=== PATIENT | female | born 1960 ===

== ENCOUNTER 2018-12-09 03:35 | Inpatient (IN) ==
[2018-12-09] MEDS ORDERED: ONDANSETRON 4 MG/2 ML VIAL IV PRN (04:45)
[2018-12-09] MEDS ORDERED: MAGNESIUM HYDROXIDE SUSP 30 ML UDCUP PO PRN (04:45)
[2018-12-09] MEDS ORDERED: DEXTROSE 5% NACL 0.45% 1,000 ML IV SCH (05:00)
[2018-12-09 05:07] LABS: Basophils # 0.1 10*3/uL (0.0-0.2); Basophils % 0.5 % (0.0-0.8); Eosinophils # 0.1 10*3/uL (0.0-0.87); Eosinophils % 0.8 % (0.00-10.9); Hematocrit 43.5 VOL% (35.7-47.0); Hemoglobin 14.8 GM/DL (12.0-16.0); Immature Granulocytes % 0.5 %; Immature Granulocytes Absolute 0.06 #; Lymphocytes # 2.1 10*3/uL (1.4-4.0); Lymphocytes % 19.3 % (21.3-54.2); Mean Corpuscular Hemoglobin 29 PG (27-34); Mean Corpuscular Volume 85.6 FL (87-102); Mean Platelet Volume 10.5 FL (9.6-12.0); Monocytes # 0.6 10*3/uL (0.11-0.8); Monocytes % 5.1 % (1.7-12.7); Neutrophils # 8.2 10*3/uL (1.4-7.4); Neutrophils % 73.8 % (38.7-73.9); Platelet Count 182 T/CUMM (130-400); Red Blood Count 5.08 MC/CUMM (3.8-5.5); Red Cell Distribution Width 12.1 % (9.3-17.3)
[2018-12-09 05:28] LABS: Albumin 3.3 G/DL (3.4-5.0); Bilirubin,Total 0.5 MG/DL (0.2-1.0); Calcium 8.7 MG/DL (8.5-10.1); Osmolality,Calculated 285.8 MOS/KG (273-304); Potassium 3.6 MMOL/L (3.5-5.1); Total Protein 7.7 G/DL (6.4-8.3)
[2018-12-09] MEDS ORDERED: GLUCAGON 1 MG VIAL IM PRN ×2 (12:47→18:49)
[2018-12-09] MEDS ORDERED: DEXTROSE 50% 25 GM/50 ML VIAL IV PRN (12:47)
[2018-12-09] MEDS ORDERED: EPINEPHrine 1 MG/ML VIAL ONE (12:57)
[2018-12-09] MEDS ORDERED: BUPIVACAINE 0.5% 50 ML VIAL ONE (12:57)
[2018-12-09] MEDS ORDERED: DEXAMETHASONE 4 MG/1 ML VIAL ONE ×2 (12:58→16:36)
[2018-12-09] MEDS ORDERED: ceFAZolin 1,000 MG VIAL ONE (14:31)
[2018-12-09] MEDS: SODIUM CHLORIDE 0.45% 1,000 ML IV SCH ×2 (14:33→21:29)
[2018-12-09] MEDS ORDERED: MIDAZOLAM 2 MG/2 ML VIAL ONE (16:36)
[2018-12-09] MEDS ORDERED: fentaNYL 100 MCG/2 ML VIAL ONE (16:36)
[2018-12-09] MEDS ORDERED: PROPOFOL 200 MG/20 ML VIAL IV ONE (16:36)
[2018-12-09] MEDS ORDERED: SEVOFLURANE 1 UNIT/15 MINUTE INH ONE (16:36)
[2018-12-09] MEDS ORDERED: NEOSTIGMINE 10 MG/10 ML VIAL ONE (16:37)
[2018-12-09] MEDS ORDERED: GLYCOPYRROLATE 0.4 MG/2 ML VIAL ONE (16:37)
[2018-12-09] MEDS ORDERED: KETOROLAC 30 MG/1 ML VIAL ONE (16:37)
[2018-12-09] MEDS ORDERED: ONDANSETRON 4 MG/2 ML VIAL ONE (16:37)
[2018-12-09] MEDS ORDERED: LACTATED RINGERS 1,000 ML IV ONE (16:37)
[2018-12-09] MEDS ORDERED: ROCURONIUM 100 MG/10 ML VIAL IV ONE (16:37)
[2018-12-09 18:04] LABS: Basophils % 0.3 % (0.0-0.8); Eosinophils % 0.1 % (0.00-10.9); Hematocrit 40.4 VOL% (35.7-47.0); Hemoglobin 13.5 GM/DL (12.0-16.0); Immature Granulocytes % 0.4 %; Immature Granulocytes Absolute 0.03 #; Lymphocytes # 0.8 10*3/uL (1.4-4.0); Lymphocytes % 10.8 % (21.3-54.2); Mean Corpuscular HGB Conc 33.4 GM/DL (32-36); Mean Corpuscular Hemoglobin 29 PG (27-34); Mean Corpuscular Volume 85.8 FL (87-102); Mean Platelet Volume 10.8 FL (9.6-12.0); Monocytes # 0.1 10*3/uL (0.11-0.8); Monocytes % 1.7 % (1.7-12.7); Neutrophils % 86.7 % (38.7-73.9); Platelet Count 157 T/CUMM (130-400); Red Blood Count 4.71 MC/CUMM (3.8-5.5); Red Cell Distribution Width 12.3 % (9.3-17.3)
[2018-12-09 18:39] LABS: Calcium 8.1 MG/DL (8.5-10.1); Potassium 3.9 MMOL/L (3.5-5.1)
[2018-12-09] MEDS ORDERED: DEXTROSE 50% 25 GM/50 ML SYRINGE IV PRN (18:49)
[2018-12-09] MEDS: metFORMIN 500 MG TABLET PO SCH (18:50)
[2018-12-09] MEDS: INSULIN REGULAR 100 UNIT/ML SUBCUT SCH (18:50)
[2018-12-09] MEDS: MULTIVITAMIN (BEROCCA) TABLET PO SCH (18:55)
[2018-12-10] MEDS: INSULIN REGULAR 100 UNIT/ML SUBCUT SCH ×5 (00:35→21:30)
[2018-12-10 04:33] LABS: Basophils % 0.1 % (0.0-0.8); Hematocrit 37.3 VOL% (35.7-47.0); Hemoglobin 12.5 GM/DL (12.0-16.0); Immature Granulocytes % 0.5 %; Immature Granulocytes Absolute 0.07 #; Lymphocytes % 14.9 % (21.3-54.2); Mean Corpuscular HGB Conc 33.5 GM/DL (32-36); Mean Corpuscular Hemoglobin 29 PG (27-34); Mean Corpuscular Volume 85.6 FL (87-102); Monocytes % 7.3 % (1.7-12.7); Neutrophils # 10.5 10*3/uL (1.4-7.4); Neutrophils % 77.2 % (38.7-73.9); Platelet Count 163 T/CUMM (130-400); Red Blood Count 4.36 MC/CUMM (3.8-5.5); Red Cell Distribution Width 12.4 % (9.3-17.3); White Blood Count 13.6 T/CUMM (4-12)
[2018-12-10 05:04] LABS: Calcium 8.2 MG/DL (8.5-10.1); Osmolality,Calculated 282.7 MOS/KG (273-304); Potassium 3.6 MMOL/L (3.5-5.1)
[2018-12-10] MEDS ORDERED: glyBURIDE 5 MG TABLET PO SCH ×2 (08:00→21:00)
[2018-12-10] MEDS: MULTIVITAMIN (BEROCCA) TABLET PO SCH (09:27)
[2018-12-10] MEDS: metFORMIN 500 MG TABLET PO SCH ×2 (09:27→17:17)
[2018-12-10] MEDS: FOLIC ACID 1 MG TABLET PO SCH (09:28)
[2018-12-10] MEDS: THIAMINE 100 MG TABLET PO SCH (09:28)
[2018-12-10] MEDS: NICOTINE 14 MG/24 HR PATCH TRANSDERM SCH (09:28)
[2018-12-10] MEDS: ENOXAPARIN 30 MG/0.3 ML SYRINGE SUBCUT SCH ×2 (09:30→20:24)
[2018-12-10] MEDS ORDERED: BISACODYL 5 MG TABLET PO ONE (11:04)
[2018-12-10] MEDS: MORPHINE 4 MG/1 ML VIAL IV PRN (11:55)
[2018-12-10] MEDS: SODIUM CHLORIDE 0.45% 1,000 ML IV SCH ×2 (12:32→17:19)
[2018-12-10 19:20] LABS: Apearance,Urine Slightly Hazy (Clear); Bacteria,Urine Occasional /HPF (Few); Bilirubin,Urine Negative (Negative); Blood, Urine Negative (Negative); Glucose,Urine (UA) 150 mg/dL (Negative); Hyaline Casts,Urine 1 /LPF (0-3); Ketones,Urine Negative (Negative); Mucus,Urine Occasional /LPF (Occasional); Nitrite,Urine Negative (Negative); Protein,Urine Negative; RBC,Urine 6 /HPF (0-4); Squamous Epithelial Cell,Urine Occasional /HPF (0-10); Urine Color Yellow (Yellow); Urine Specific Gravity 1.012 (1.001-1.035); WBC,Urine 79 /HPF (0-6)
[2018-12-11] MEDS: MORPHINE 4 MG/1 ML VIAL IV PRN ×3 (00:04→21:41)
[2018-12-11] MEDS: SODIUM CHLORIDE 0.45% 1,000 ML IV SCH ×2 (01:18→14:56)
[2018-12-11 05:19] LABS: Basophils % 0.3 % (0.0-0.8); Eosinophils % 0.2 % (0.00-10.9); Hematocrit 37.1 VOL% (35.7-47.0); Hemoglobin 12.5 GM/DL (12.0-16.0); Immature Granulocytes % 0.6 %; Immature Granulocytes Absolute 0.06 #; Lymphocytes % 19.7 % (21.3-54.2); Mean Corpuscular HGB Conc 33.7 GM/DL (32-36); Mean Corpuscular Hemoglobin 29 PG (27-34); Mean Corpuscular Volume 85.5 FL (87-102); Mean Platelet Volume 10.9 FL (9.6-12.0); Monocytes # 0.9 10*3/uL (0.11-0.8); Monocytes % 8.4 % (1.7-12.7); Neutrophils # 7.3 10*3/uL (1.4-7.4); Neutrophils % 70.8 % (38.7-73.9); Platelet Count 130 T/CUMM (130-400); Red Blood Count 4.34 MC/CUMM (3.8-5.5); Red Cell Distribution Width 12.4 % (9.3-17.3); White Blood Count 10.3 T/CUMM (4-12)
[2018-12-11 05:41] LABS: Calcium 7.9 MG/DL (8.5-10.1); Osmolality,Calculated 275.2 MOS/KG (273-304)
[2018-12-11] MEDS ORDERED: glyBURIDE 5 MG TABLET PO SCH (08:00)
[2018-12-11] MEDS: MULTIVITAMIN (BEROCCA) TABLET PO SCH (08:57)
[2018-12-11] MEDS: NICOTINE 14 MG/24 HR PATCH TRANSDERM SCH (08:58)
[2018-12-11] MEDS: FOLIC ACID 1 MG TABLET PO SCH (08:58)
[2018-12-11] MEDS: THIAMINE 100 MG TABLET PO SCH (09:00)
[2018-12-11] MEDS: metFORMIN 500 MG TABLET PO SCH ×2 (09:01→17:29)
[2018-12-11] MEDS: INSULIN REGULAR 100 UNIT/ML SUBCUT SCH ×4 (09:02→21:40)
[2018-12-11] MEDS: ENOXAPARIN 30 MG/0.3 ML SYRINGE SUBCUT SCH ×2 (09:06→21:40)
[2018-12-11] MEDS ORDERED: POTASSIUM CHLORIDE 20 MEQ TABLET PO PRN (14:04)
[2018-12-11] MEDS ORDERED: cefTRIAXone 1,000 MG in SYRINGE 1 EACH IV SCH (15:30)
[2018-12-11] MEDS: glyBURIDE 5 MG TABLET PO SCH (17:29)
[2018-12-12 05:32] LABS: Basophils % 0.3 % (0.0-0.8); Eosinophils # 0.1 10*3/uL (0.0-0.87); Eosinophils % 0.7 % (0.00-10.9); Hematocrit 37.5 VOL% (35.7-47.0); Hemoglobin 12.6 GM/DL (12.0-16.0); Immature Granulocytes % 0.6 %; Immature Granulocytes Absolute 0.06 #; Lymphocytes # 2.8 10*3/uL (1.4-4.0); Lymphocytes % 28.9 % (21.3-54.2); Mean Corpuscular HGB Conc 33.6 GM/DL (32-36); Mean Corpuscular Hemoglobin 29 PG (27-34); Mean Platelet Volume 10.9 FL (9.6-12.0); Monocytes # 0.9 10*3/uL (0.11-0.8); Monocytes % 9.3 % (1.7-12.7); Neutrophils # 5.8 10*3/uL (1.4-7.4); Neutrophils % 60.2 % (38.7-73.9); Platelet Count 152 T/CUMM (130-400); Red Blood Count 4.36 MC/CUMM (3.8-5.5); Red Cell Distribution Width 12.2 % (9.3-17.3); White Blood Count 9.6 T/CUMM (4-12)
[2018-12-12 05:44] LABS: Calcium 8.3 MG/DL (8.5-10.1); Osmolality,Calculated 274.5 MOS/KG (273-304); Potassium 3.2 MMOL/L (3.5-5.1)
[2018-12-12] MEDS ORDERED: POTASSIUM CHLORIDE 20 MEQ TABLET PO ONE (07:51)
[2018-12-12] MEDS: INSULIN REGULAR 100 UNIT/ML SUBCUT SCH ×2 (08:13→11:30)
[2018-12-12] MEDS: MORPHINE 4 MG/1 ML VIAL IV PRN (09:00)
[2018-12-12] MEDS: NICOTINE 14 MG/24 HR PATCH TRANSDERM SCH (09:02)
[2018-12-12] MEDS: ENOXAPARIN 30 MG/0.3 ML SYRINGE SUBCUT SCH (09:02)
[2018-12-12] MEDS: THIAMINE 100 MG TABLET PO SCH (09:03)
[2018-12-12] MEDS: FOLIC ACID 1 MG TABLET PO SCH (09:03)
[2018-12-12] MEDS: MULTIVITAMIN (BEROCCA) TABLET PO SCH (09:03)
[2018-12-12] MEDS: glyBURIDE 5 MG TABLET PO SCH (09:03)
[2018-12-12] MEDS: metFORMIN 500 MG TABLET PO SCH (09:03)
[2018-12-12 11:27] VITALS: BP 132/82
== END 2018-12-12 14:52 | disposition home or self-care (01) | DRG 517 ==
LOC: EDUNIT# → EDBD → N.ED 03:35 → N.EDINP 04:45 → N.3E 05:12
PROVIDERS: ADMIT Orthopaedic Surgery; ATTEND Orthopaedic Surgery